=== PATIENT | female | born 1945 | race Caucasian/White ===

== ENCOUNTER 2016-10-02 16:16 | Inpatient (IN) ==
--- NOTE | 2016-10-02 17:24 | CT Report ---
CT brain Indication: Altered level of consciousness Comparison: None available Technique: Axial CT imaging of the brain is performed without contrast with 3 mm increments. Findings: No evidence of hemorrhage, mass mass effect midline shift or acute infarct seen. The brain parenchyma attenuation and differentiation appears within normal limits. The ventricles and cisterns are normal in caliber. No cranial or skull base abnormality is identified. Impression: No evidence of abnormality demonstrated. This CT exam was performed using one or more the following dose reduction techniques: Automated exposure control, adjustment of the MA and/or KV according to patient size, or use of iterative reconstruction technique. PROCEDURE INTERPRETED AT [facility] DEPARTMENT OF RADIOLOGY Final Report Signed by: Dr. Cole Aceves
--- NOTE | 2016-10-02 17:30 | EKG Report ---
Stationary ECG Study [facility] ER Test Date: 10/02/2016 4:46:43 PM Pat Name: QASIM GRUBBS Department: Room: Gender: F Business Change Manager: : 1945 Requested by: Amari Rogers Order Number: [id number] Reading MD: HERNANDO SANZ Intervals [place] Rate: 87 P: 53 MS: 145 QRS: -36 QRSD: 106 T: 57 QT: 378 QTc: 422 Interpretive Statements SINUS RHYTHM MARKED LEFT AXIS DEVIATION Electronically Signed On 10-03-16 16:51:57 CDT by HERNANDO SANZ [id number]
[2016-10-02] MEDS ORDERED: cloNIDine 0.1 MG TABLET PO STA (17:33)
[2016-10-02 17:36] LABS: Basophils # 0.1 10*3/uL (0.0-0.2); Basophils % 0.6 % (0.0-0.8); Eosinophils # 0.1 10*3/uL (0.0-0.87); Hematocrit 42.8 VOL% (35.7-47.0); Hemoglobin 14.8 GM/DL (12.0-16.0); Immature Granulocytes % 0.5 %; Immature Granulocytes Absolute 0.06 #; Lymphocytes # 2.4 10*3/uL (1.4-4.0); Lymphocytes % 20.5 % (21.3-54.2); Mean Corpuscular HGB Conc 34.6 GM/DL (32-36); Mean Corpuscular Hemoglobin 31 PG (27-34); Mean Corpuscular Volume 90.3 FL (87-102); Mean Platelet Volume 11.2 FL (9.6-12.0); Monocytes # 0.7 10*3/uL (0.11-0.8); Neutrophils # 8.2 10*3/uL (1.4-7.4); Neutrophils % 71.4 % (38.7-73.9); Platelet Count 254 T/CUMM (130-400); Red Blood Count 4.74 MC/CUMM (3.8-5.5); Red Cell Distribution Width 12.9 % (9.3-17.3); White Blood Count 11.5 T/CUMM (4-12)
[2016-10-02] MEDS ORDERED: ONDANSETRON 4 MG/2 ML VIAL IV PRN (17:38)
[2016-10-02 17:46] LABS: Calcium 9.6 MG/DL (8.5-10.1); Osmolality,Calculated 279.5 MOS/KG (273-304); Potassium 4.3 MMOL/L (3.5-5.1)
[2016-10-02 17:50] LABS: Apearance,Urine CLEAR (Clear); Bilirubin,Urine Negative (Negative); Blood, Urine Negative (Negative); Glucose,Urine (UA) Negative (Negative); Ketones,Urine 5 mg/dL (Negative); Mucus,Urine Occasional /LPF (Occasional); Nitrite,Urine Negative (Negative); Protein,Urine Negative; RBC,Urine 1 /HPF (0-4); Squamous Epithelial Cell,Urine Occasional /HPF (0-10); Urine Color Straw (Yellow); Urine Urobilinogen < 2.0 EU/DL (0.2-1.0); WBC,Urine 11 /HPF (0-6)
--- NOTE | 2016-10-02 18:01 | Emergency Department Note ---
I, Gian Weber, am scribing for, and in the presence of, Amari Grimaldo M.D. 17:40. IRe Howard T, M.D., personally performed the services described in this documentation, ascribed by Gian Weber in my presence, and it is both accurate and complete [id number] . Arrival - Arrival Chief Complaint: Neuro Stated Complaint: going blank couldnt remember basic thing cant talk ED Nursing Triage Note: C/O STATES TODAY WAS HAVING EPISODE OF NOT BEING ABLE TO SPEAK., STATES SHE HAD AN EPISODE OF CONFUSION, STATES THAT SHE HAD AN EPISODE OF NOT BEING ABLE TO READ WORDS., STATES THIS STARTED TODAY AT 0830 TODAY .+ HEADACHE, +NAUSEA Mode of Arrival: Wheelchair Limitations: No Limitations Source: Patient Time Seen by Provider: 10/02/16 16:51 - History of Present Illness HPI Narrative: Pt is a 71 y/o white female arriving to ED by EMS with c/o confusion that onset a few hours ago. At time of exam, pt only complains of a headache and states that she took a Tylenol today and had no relief. Pt states that it was twice today that she was not able to read and she did not know what to say and do. She said that around 1100 today, she experienced terrible and slower speech. She states that she was better for about 2 hours and then she had the same episode again. Family states that pt reported that she could only see through a tunnel at that time. Pt reports that both of her episodes were during judaism, so she just sat there and did not alert anyone. Pt states that this has never happened before. She has a PMHx of DM and HTN. At time of exam pt's blood pressure is 191/85 and she currently takes 4 blood pressure medications. Onset (ago): hour(s) Consistency: constant Severity: mild Severity scale (1-10): 3 Allergies/Adverse Reactions: Allergies Allergy/AdvReac Type Severity Reaction Status Date / Time Penicillins Allergy RASH Verified 10/02/16 16:33 pseudoephedrine Allergy RASH Verified 10/02/16 16:33 [From [facility]] Home Medications: Home Medications Medication Instructions Recorded Confirmed Type Doxazosin Mesylate 2 mg PO BID 10/02/16 10/02/16 History Glimepiride 4 mg PO BID W/MEALS 10/02/16 10/02/16 History Lactobacillus Combo No.6 1 each PO DAILY 10/02/16 10/02/16 History [Probiotic Complex] Metformin HCl 1,000 mg PO BEDTIME 10/02/16 10/02/16 History Metformin HCl 500 mg PO QAM 10/02/16 10/02/16 History Verapamil HCl [Verapamil ER Tab] 240 mg PO QAM 10/02/16 10/02/16 History Review of System - Review of System 12 point system: reviewed and no additional remarkable complaints except as stated - Review of System Eyes: Absent: discharge, pain Head/Ears/Nose/Throat: Absent: earache, epistaxis Respiratory: Absent: cough, respiratory distress, wheezing Cardiovascular: Absent: chest pain, palpitations Gastrointestinal: Absent: abdominal pain, nausea, vomiting, diarrhea Genitourinary female: Absent: abnormal menses, dysuria Musculoskeletal: Absent: arm pain, back pain, leg pain, neck pain Skin: Absent: rash, lesions Neurological: Present: headache, confusion Psychiatric: Absent: anxiety, depression Medical,Surgical,& Family Hx - Medical History Cardio: History of: Hypertension Endocrine: History of: Diabetes Mellitus (NIDDM), Dyslipidemia - Social History Smoking Status: Never smoker Frequency of Alcohol Use: None Type of Drug Use: None Exam Vital Signs: Vital Signs Temperature 98.8 F 10/02/16 16:26 Pulse Rate 91 H 10/02/16 16:26 Respiratory Rate 16 10/02/16 16:26 Blood Pressure 214/110 10/02/16 16:26 O2 Sat by Pulse Oximetry 95 10/02/16 16:26 - General General appearance: alert, in no apparent distress - Head Head exam: Present: atraumatic, normocephalic, normal inspection - Eye Eye exam: Present: normal appearance, PERRL, EOMI - ENT ENT exam: Present: normal exam, normal oropharynx, mucous membranes moist, TM's normal bilaterally, normal external ear exam - Neck Neck exam: Present: normal inspection, full ROM, trachea midline. Absent: tenderness - Chest Chest inspection: Present: normal inspection, symmetric chest wall rise. Absent : tenderness - Respiratory Respiratory exam: Present: normal lung sounds bilaterally - Cardiovascular Cardiovascular exam: Present: regular rate, normal rhythm, normal heart sounds - Abdominal Exam Abdominal exam: Present: soft, normal bowel sounds. Absent: distention, tenderness, guarding, rebound - Extremities Exam Extremities exam: Present: normal inspection, full ROM, normal capillary refill. Absent: tenderness, pedal edema - Back Exam Back exam: Present: normal inspection, full ROM. Absent: tenderness - Neurological Exam Neurological exam: Present: alert, oriented X3, CN II-XII intact, normal gait, reflexes normal - Psychiatric Psychiatric exam: Present: normal affect, normal mood - Skin Skin exam: Present: warm, dry, intact, normal color Course Course Narrative: Medical decision making: Discussed with Dr. Mabry who agreed to admit the patient and actually came to see the patient in the ER. We will watch overnight and consult neurology. Results - Labs CBC & BMP: 10/02/16 16:53 10/02/16 16:53 Lab Results: I have reviewed the patients labs Labs: Laboratory Tests 10/02/16 16:53 Lymph % (Auto) 20.5 L Neut # (Auto) 8.2 H - EKG EKG results: interpreted by STAR, sinus rhythm (HR87 L axis deviation), normal ST/T, no acute changes - Diagnostic Findings Procedure: CT: report reviewed by me (Head: No evidence of abnormality demonstrated.) Disposition Clinical Impression: Transient cerebral ischemia Case discussed with: patient, patient's family Disposition: Still a Patient Condition: Stable Time of Disposition: 18:01
[2016-10-02] MEDS ORDERED: ACETAMINOPHEN 500 MG TABLET ONE (18:14)
[2016-10-02] MEDS ORDERED: ACETAMINOPHEN 500 MG TABLET PO STA ×2 (18:46→19:33)
[2016-10-02] MEDS ORDERED: cloNIDine 0.1 MG TABLET ONE (18:49)
--- NOTE | 2016-10-02 19:57 | Ultrasound Report ---
Carotid artery ultrasound Indication: Transient ischemic attack Comparison: None available Color Doppler flow and spectral analysis was performed. Findings: Small amount of atherosclerotic plaque is present in both proximal internal carotid arteries. The peak systolic velocity in the right is 99 cm/s . Ratio of flow is 1.2. The peak systolic velocity in the left is 116 cm/s . Ratio of flow is 1.4 Bilateral antegrade vertebral flow is seen. Impression: No evidence of hemodynamically significant stenosis is seen, 0-49% estimated stenosis. Consensus conference on the carotid ultrasound criteria used. Ultrasound images were captured and stored. PROCEDURE INTERPRETED AT [facility] DEPARTMENT OF RADIOLOGY Final Report Signed by: Dr. Cole Aceves
[2016-10-02] MEDS ORDERED: DOXAZOSIN 2 MG TABLET PO SCH (21:00)
[2016-10-02] MEDS ORDERED: GLUCAGON 1 MG VIAL IM PRN (21:24)
[2016-10-02] MEDS ORDERED: DEXTROSE 50% 25 GM/50 ML VIAL IV PRN (21:24)
--- NOTE | 2016-10-02 21:27 | Internal Med History&Physical ---
Assessment and Plan (1) Diabetes Status: Chronic Current Visit: Yes Qualifiers: Diabetes mellitus type: type 2 Diabetes mellitus complication status: with neurologic complications Diabetes mellitus complication detail: with polyneuropathy Diabetes mellitus correction insulin use: without correction use Qualified Code(s): E11.42 - Type 2 diabetes mellitus with diabetic polyneuropathy (2) Dyslipidemia Status: Chronic Current Visit: Yes (3) Hypertension Status: Chronic Current Visit: Yes Qualifiers: Hypertension type: essential hypertension Qualified Code(s): I10 - Essential (primary) hypertension (4) Transient cerebral ischemia Status: Acute Current Visit: Yes History of Present Illness Chief complaint: acute aphasia and confusion History of present illness: Ms. Escamilla is a 71 year old female with history of DM, peripheral neuropathy to both lower extremities, HTN, dyslipidemia, OA, recurrent UTI, acid reflux, suspicion of obstructive sleep apnea, who presented to ER with acute confusion, aphasia earlier today at [facility]. She was found to have significantly elevated blood pressure in the ER. She was admitted for stroke rule out. Home Medications Medication Instructions Recorded Confirmed Type Doxazosin Mesylate 2 mg PO BID 10/02/16 10/02/16 History Glimepiride 4 mg PO BID W/MEALS 10/02/16 10/02/16 History Lactobacillus Combo No.6 1 each PO DAILY 10/02/16 10/02/16 History [Probiotic Complex] Metformin HCl 1,000 mg PO BEDTIME 10/02/16 10/02/16 History Metformin HCl 500 mg PO QAM 10/02/16 10/02/16 History Verapamil HCl [Verapamil ER Tab] 240 mg PO QAM 10/02/16 10/02/16 History Allergies Allergy/AdvReac Type Severity Reaction Status Date / Time Penicillins Allergy RASH Verified 10/02/16 16:33 pseudoephedrine Allergy RASH Verified 10/02/16 16:33 [From Sudafed] Medical,Surgical,& Family Hx - Medical History Cardio: History of: Hypertension Neurology: History of: Peripheral Neuropathy (both legs) Endocrine: History of: Diabetes Mellitus (NIDDM), Dyslipidemia Respiratory: History of: Respiratory Problems (exertional shortness of breath) Genitourinary: History of: Recurring Urinary Tract Infections Gastrointestinal: History of: GERD Musculoskeletal: History of: Back/Neck Problems, Musculoskeletal Problems ( osteoarthritis) - Family History Family History: Reports;: Family Hypertension - Social History Smoking Status: Never smoker Frequency of Alcohol Use: None Type of Drug Use: None Marital Status: Single Lives With:: Alone Functional capacity: independent ambulation - Constitutional Constitutional: Present: fatigue, lethargy, malaise - Respiratory Respiratory: Present: dyspnea on exertion - Gastrointestinal Gastrointestinal: Present: constipation (history of), dyspepsia (history of) - Genitourinary Genitourinary: Present: urinary frequency - Musculoskeletal Musculoskeletal: Present: arthralgias - Neurological Neurological: Present: confusion Exam - Constitutional Vitals: Period Temp Pulse Resp BP Sys/Worthy Pulse Ox Last 24 Hr 82-91 16-19 155-185/67-82 97 General appearance: no acute distress - Head Head exam: Present: normocephalic - Eye Eye exam: Present: EOMI - Respiratory Respiratory exam: Present: clear to auscultation bilaterally. Absent: rhonchi, wheezes - Cardiovascular Cardiovascular exam: Present: regular rate and rhythm - GI/Abdominal GI/Abdominal exam: Present: soft. Absent: tenderness - Extremities Exam Extremities exam: Absent: edema - Neurological Exam Neurological exam: Present: alert, oriented X3 - Psychiatric Psychiatric exam: Present: normal affect, normal mood - Skin Skin exam: Present: warm, dry Results - Labs CBC & BMP: 10/02/16 16:53 10/02/16 16:53 - EKG EKG shows: sinus rhythm - Diagnostic Findings Procedure: Ultrasound: report reviewed by me Quality Measures - Stroke Onset of Symptoms Date: 10/02/16 Onset of Symptoms Time: 08:30 Symptom Onset Unknown: No
[2016-10-02] MEDS ORDERED: DOXAZOSIN 1 MG TABLET PO SCH (21:30)
[2016-10-02] MEDS: ACETAMINOPHEN 325 MG TABLET PO PRN (22:06)
[2016-10-02] MEDS: GLIMEPIRIDE 4 MG TABLET PO SCH (22:11)
[2016-10-02] MEDS: DOCUSATE SODIUM 100 MG CAPSULE PO SCH (22:11)
[2016-10-02] MEDS: metFORMIN 500 MG TABLET PO SCH (22:11)
[2016-10-02] MEDS: CIPROFLOXACIN INJ 200 MG in PREMIX 1 EACH IV SCH (23:38)
[2016-10-03] MEDS: KETOROLAC 15 MG/1 ML VIAL IV PRN ×3 (01:11→21:17)
[2016-10-03 05:14] LABS: Basophils # 0.1 10*3/uL (0.0-0.2); Basophils % 0.6 % (0.0-0.8); Eosinophils # 0.1 10*3/uL (0.0-0.87); Hematocrit 39.1 VOL% (35.7-47.0); Hemoglobin 13.1 GM/DL (12.0-16.0); Immature Granulocytes % 0.6 %; Immature Granulocytes Absolute 0.07 #; Lymphocytes # 2.8 10*3/uL (1.4-4.0); Lymphocytes % 23.9 % (21.3-54.2); Mean Corpuscular HGB Conc 33.5 GM/DL (32-36); Mean Corpuscular Hemoglobin 31 PG (27-34); Mean Corpuscular Volume 91.4 FL (87-102); Mean Platelet Volume 11.4 FL (9.6-12.0); Monocytes # 0.8 10*3/uL (0.11-0.8); Monocytes % 7.1 % (1.7-12.7); Neutrophils # 7.7 10*3/uL (1.4-7.4); Neutrophils % 66.8 % (38.7-73.9); Platelet Count 249 T/CUMM (130-400); Red Blood Count 4.28 MC/CUMM (3.8-5.5); White Blood Count 11.6 T/CUMM (4-12)
[2016-10-03 05:50] LABS: Calcium 8.9 MG/DL (8.5-10.1); Osmolality,Calculated 282.4 MOS/KG (273-304); Potassium 4.2 MMOL/L (3.5-5.1)
[2016-10-03 05:57] LABS: VLDL CHOLESTEROL 188.8 MG/DL
[2016-10-03] MEDS: INSULIN REGULAR 100 UNIT/ML SUBCUT SCH ×4 (07:35→21:19)
[2016-10-03] MEDS ORDERED: VERAPAMIL SR 240 MG TABLET PO SCH (09:00)
[2016-10-03] MEDS: OMEGA 3 ACID ETHYL ESTERS 1 GM CAPSULE PO SCH ×2 (09:02→21:15)
[2016-10-03] MEDS: GLIMEPIRIDE 4 MG TABLET PO SCH ×2 (09:02→18:25)
[2016-10-03] MEDS: DOXAZOSIN 4 MG TABLET PO SCH ×2 (09:03→21:14)
[2016-10-03] MEDS: metFORMIN 500 MG TABLET PO SCH ×3 (09:03→21:23)
[2016-10-03] MEDS: LACTOBACILLUS ACIDOPHILUS/BULGARICUS CAPLET PO SCH (09:03)
[2016-10-03] MEDS: PANTOPRAZOLE 40 MG TABLET PO SCH (09:03)
[2016-10-03] MEDS: GEMFIBROZIL 600 MG TABLET PO SCH (09:04)
[2016-10-03] MEDS: DOCUSATE SODIUM 100 MG CAPSULE PO SCH ×2 (09:04→21:18)
--- NOTE | 2016-10-03 09:06 | Neurology Consult Note ---
History of Present Illness History of present illness: Ms. Escamilla is a 71 year old right-handed white lady with past medical history significant for DM, peripheral neuropathy to both lower extremities, HTN, dyslipidemia, OA, recurrent UTI, acid reflux, suspicion of obstructive sleep apnea, who presented to ER with difficulty with his speech and comprehension which happened yesterday while she was at [employer]. Patient reported that she could read but could not process or understood what she was looking at. Then later on she realized that she could not get the words out. She knew what she wanted to say but just could not get the words out. She denies having any weakness or numbness. Symptoms lasted for 30-45 minute then it resolved but then came back again a few hours later and lasted for another hour. A CT of the head reveals no acute abnormalities. Carotid ultrasound is unremarkable. Patient is feeling better. She was never been on any antiplatelet agents before. Home Medications Medication Instructions Recorded Confirmed Type Doxazosin Mesylate 2 mg PO BID 10/02/16 10/02/16 History Glimepiride 4 mg PO BID W/MEALS 10/02/16 10/02/16 History Lactobacillus Combo No.6 1 each PO DAILY 10/02/16 10/02/16 History [Probiotic Complex] Metformin HCl 1,000 mg PO BEDTIME 10/02/16 10/02/16 History Metformin HCl 500 mg PO QAM 10/02/16 10/02/16 History Verapamil HCl [Verapamil ER Tab] 240 mg PO QAM 10/02/16 10/02/16 History Allergies Allergy/AdvReac Type Severity Reaction Status Date / Time Penicillins Allergy RASH Verified 10/02/16 16:33 pseudoephedrine Allergy RASH Verified 10/02/16 16:33 [From Sudafed] Rekjrby-Bln-Mlr Reductase Allergy Verified 10/03/16 01:01 Inhibitor 12 point system: reviewed and no additional remarkable complaints except as stated Medical,Surgical,& Family Hx - Medical History Cardio: History of: Hypertension Neurology: History of: Peripheral Neuropathy (both legs) Endocrine: History of: Diabetes Mellitus (NIDDM), Dyslipidemia Respiratory: History of: Respiratory Problems (exertional shortness of breath) Genitourinary: History of: Recurring Urinary Tract Infections Gastrointestinal: History of: GERD Musculoskeletal: History of: Back/Neck Problems, Musculoskeletal Problems ( osteoarthritis) - Family History Family History: Reports;: Family Hypertension - Social History Smoking Status: Never smoker Frequency of Alcohol Use: None Type of Drug Use: None Exam - Constitutional Vitals: Period Temp Pulse Resp BP Sys/Worthy Pulse Ox Last 24 Hr 98.1 F-98.5 F 79-91 16-20 139-185/62-82 91-97 Exam: GENERAL: Patient is in no acute distress. NECK: Neck is supple. There is no JVD. No carotid bruits present. No thyroid masses. CVS: First and second heart sounds are normal. There is no S3 present. Regular rate and rhythm. RESPIRATORY: Lungs are clear to auscultation without any rales or rhonchi. ABDOMEN: Soft and non-tender. Bowel sounds are present. There is no hepatosplenomegaly. EXT: There is no palpable edema. Peripheral pulses are present. Skin: No rashes Central Nervous system: General: Alert, awake and Oriented x 3 Speech: Fluent Comprehension: Intact and normal Facial expressions: Normal Cranial Nerves: CN1/Olfactory: Normal CN II/ Optic: Normal, Visual Quintana unreliable CN III, and : FAYE & EOMI CN V: Normal & intact CN VII: face is symmetric CNVIII: Normal CN XI/X/XI/XII: Intact and Normal Motor: Bulk and Tone is normal. Strength in the right 5/5 Strength in the left 5/5 Sensory: Decreased for all the modalities of PP, LT and temp sense in the glove and stocking distribution Reflexes: 1+ and symmetrical Cerebellar function: Normal finger to nose and heel to patiño testing. Toes: Equivocal Gait: Slightly broad-based Results - Labs CBC & BMP: 10/03/16 03:45 10/03/16 03:45 Assessment and Plan (1) Transient cerebral ischemia Status: Acute Assessment and plan: Aspirin 81 mg p.o. daily MRI and MRA Echocardiogram Lipid profile Thank you for the consult Current Visit: Yes
[2016-10-03] MEDS: ASPIRIN EC 81 MG TABLET PO SCH (13:04)
[2016-10-03] MEDS: CIPROFLOXACIN INJ 200 MG in PREMIX 1 EACH IV SCH ×2 (13:05→23:39)
--- NOTE | 2016-10-03 13:29 | Magnetic Resonance Report ---
Exam: MR head/brain w and wo con Date: 10/03/2016 4:00 AM Comparison: CT brain 10/02/2016 Indication: Headache, aphasia, acute confusion Technique:[Multiple acquisitions were obtained including sagittal T1, coronal T1 scans following injection of 20 cc of Dotarem, and axial ADC, diffusion, FLAIR, T2, GRE, and T1 scans before and after the injection contrast. Scans were obtained on an open 1.2 Laura magnet.] Findings: The ventricles are midline and normal in size with no midline displacement. The pituitary has a normal appearance and the cerebellar tonsils are normal in their location. 3 small areas of restricted diffusion are noted in the left posterior parietal location. No evidence of hemorrhage, mass, extracerebral collection, or abnormal enhancement. Diffuse atrophy and FLAIR/T2 hyperintensities. Enlarged perivascular spaces which represent a normal variant. Minimal mucosal thickening in paranasal sinuses. No acute findings in the orbits, [place], or venous sinuses. Fluid in the mastoid air cells bilaterally. 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 Additional atrophy and minimal microvascular disease. T2 hyperintensities can also be associated with demyelinating disease, vasculitis, viral illness, etc. Minimal sinusitis with nonspecific fluid in the mastoid air cells. PROCEDURE INTERPRETED AT [facility] DEPARTMENT OF RADIOLOGY Final Report Signed by: Dr. Bindu Arriaga
--- NOTE | 2016-10-03 13:33 | Magnetic Resonance Report ---
Exam: MR angio head wo debra (JESUS) Date: 10/03/2016 9:09 AM Comparison: None Indication: TIA, aphasia, headache Technique:[Utilizing 3-D [id number] imaging MRA brain obtained without contrast. 3-D volume rendered scans were obtained. Degree of stenosis based on NASCET criteria. Scans were obtained on an open 1.2 Laura magnet.] Findings: Tortuosity of the arteries with no definite aneurysm. Hypoplastic left P1 segment with filling of the larger distal left PRINCIPAL SCIENTIST from ICA. Diminished filling of the distal PRINCIPAL SCIENTIST bilaterally. Impression: Tortuosity of the arteries with no definite aneurysm. Hypoplastic left P1 segment with filling from ICA. Diminished filling of the distal PRINCIPAL SCIENTIST bilaterally which can be seen with possible hemodynamically significant stenosis. PROCEDURE INTERPRETED AT [facility] DEPARTMENT OF RADIOLOGY Final Report Signed by: Dr. Bindu Arriaga
--- NOTE | 2016-10-03 13:37 | Magnetic Resonance Report ---
Exam: MR angio neck wo/w con Date: 10/03/2016 9:09 AM Comparison: None Indication: TIA, aphasia, headache Technique:[Utilizing 3-D vklk-vw-jntblu imaging MRA carotids obtained before and after the injection of 20 cc of Dotarem. Degree of stenosis based on NASCET criteria. Scans were obtained on an open 1.2 Laura magnet.] Findings: Tortuosity of the artery. In the upper carotid bulb location, the right ICA measures 4.26 mm. The left ICA measures 4.78 mm. No hemodynamically significant stenosis demonstrated. The right vertebral artery is smaller size than the left but patent to the level of the basilar artery. Impression: Tortuosity arteries with no hemodynamically significant stenosis. The right vertebral artery is smaller in size than the left. PROCEDURE INTERPRETED AT [facility] DEPARTMENT OF RADIOLOGY Final Report Signed by: Dr. Bindu Arriaga
--- NOTE | 2016-10-03 16:08 | Sleep Medicine Consult ---
Assessment and Plan (1) Unspecified sleep apnea Status: Acute Assessment and plan: Her symptoms are certainly concerning for sleep apnea and with her comorbidities and sleepiness, sleep evaluation is indicated. We will start with HST evaluation and follow-up on those results. Thank you for this consult and the opportunity to participate in her care Current Visit: Yes (2) Diabetes Status: Chronic Assessment and plan: The prevalence rate for obstructive sleep apnea in patients with type 2 diabetes can be as high as 86%. Those patients with moderate to severe obstructive sleep apnea are at a greater risk for diabetic nephropathy and neuropathy. Compliance with CPAP therapy for these patients can lead to improvement in glycemic control and improvement in insulin sensitivity. Current Visit: Yes Qualifiers: Diabetes mellitus type: type 2 Diabetes mellitus complication status: with neurologic complications Diabetes mellitus complication detail: with polyneuropathy Diabetes mellitus intermediate insulin use: without technician terminal and repeater use Qualified Code(s): E11.42 - Type 2 diabetes mellitus with diabetic polyneuropathy (3) Hypertension Status: Chronic Assessment and plan: The prevalence rate for obstructive sleep apnea patients with hypertension is 35 %. That rate can be as high as 80% in patients who require 4 or more medications for blood pressure control. Current Visit: Yes Qualifiers: Hypertension type: essential hypertension Qualified Code(s): I10 - Essential (primary) hypertension History of Present Illness Chief complaint: Sleep apnea History of present illness: Ms. Escamilla is a 71 year old female admitted with expressive aphasia and confusion and elevated blood pressure. During the course of her evaluation there was concern expressed for sleep apnea. She does have a history of snoring and problems with daytime fatigue and sleepiness. She usually retires about 10 PM and will awaken at 530. She has difficulty with multiple awakenings for unknown reasons unless she takes the Tranxene. She does that intermittently. She does have a history of hypertension and diabetes. Home Medications Medication Instructions Recorded Confirmed Type Doxazosin Mesylate 2 mg PO BID 10/02/16 10/02/16 History Glimepiride 4 mg PO BID W/MEALS 10/02/16 10/02/16 History Lactobacillus Combo No.6 1 each PO DAILY 10/02/16 10/02/16 History [Probiotic Complex] Metformin HCl 1,000 mg PO BEDTIME 10/02/16 10/02/16 History Metformin HCl 500 mg PO QAM 10/02/16 10/02/16 History Verapamil HCl [Verapamil ER Tab] 240 mg PO QAM 10/02/16 10/02/16 History Gabapentin Cap/Tab [Neurontin 300 mg PO BEDTIME 10/03/16 10/03/16 History Cap/Tab] Metoprolol Tartrate Tab [Lopressor 50 mg PO BID 10/03/16 10/03/16 History Tab] Allergies Allergy/AdvReac Type Severity Reaction Status Date / Time Penicillins Allergy RASH Verified 10/02/16 16:33 pseudoephedrine Allergy RASH Verified 10/02/16 16:33 [From Sudafed] [id number] Reductase Allergy Verified 10/03/16 01:01 Inhibitor Review of systems: Does have symptoms of discomfort in her feet but no kicking or jerking of her legs that she is aware of. She does not have any significant issues with nocturia. Exam (Pulmonay) H&P - Constitutional Vitals: Period Temp Pulse Resp BP Sys/Worthy Pulse Ox Last 24 Hr 96.2 F 71 20-20 164/71 94 Exam: She is alert and responsive in no acute distress. Pupils equal round reactive to light and accommodation. Extraocular movements intact. Oropharynx with a class IV Mallampati exam. Neck is supple without adenopathy or thyromegaly. No supraclavicular adenopathy is noted. Chest with symmetrical breath sounds without focal wheeze, rhonchi, or rales. Cardiac exam reveals a regular rhythm without murmur or gallop. Abdomen obese nontender without palpable hepatosplenomegaly or mass. Extremities are without clubbing, cyanosis, or edema. Neurologically, she is grossly intact. She moves all extremities with good strength and ambulates with a normal gait. Medical,Surgical,& Family Hx - Medical History Cardio: History of: Hypertension Neurology: History of: Peripheral Neuropathy (both legs) Endocrine: History of: Diabetes Mellitus (NIDDM), Dyslipidemia Respiratory: History of: Respiratory Problems (exertional shortness of breath) Genitourinary: History of: Recurring Urinary Tract Infections Gastrointestinal: History of: GERD Musculoskeletal: History of: Back/Neck Problems, Musculoskeletal Problems ( osteoarthritis) - Family History Family History: Reports;: Family Hypertension - Social History Smoking Status: Never smoker Frequency of Alcohol Use: None Type of Drug Use: None Results - Labs CBC & BMP: 10/03/16 03:45 10/03/16 03:45 Lab Results: I have reviewed the past 24 hour labs Quality Measures - Stroke Onset of Symptoms Date: 10/02/16 Onset of Symptoms Time: 08:30 Symptom Onset Unknown: No
--- NOTE | 2016-10-03 17:28 | Internal Med Progress Note ---
Assessment and Plan (1) Diabetes Status: Chronic Current Visit: Yes Qualifiers: Diabetes mellitus type: type 2 Diabetes mellitus complication status: with neurologic complications Diabetes mellitus complication detail: with polyneuropathy Diabetes mellitus mcfp insulin use: without oil heaterman use Qualified Code(s): E11.42 - Type 2 diabetes mellitus with diabetic polyneuropathy (2) Dyslipidemia Status: Chronic Current Visit: Yes (3) Hypertension Status: Chronic Current Visit: Yes Qualifiers: Hypertension type: essential hypertension Qualified Code(s): I10 - Essential (primary) hypertension (4) Transient cerebral ischemia Status: Acute Current Visit: Yes Internal Medicine - PN: Subj Interval history: Ms. Escamilla is a 71 year old female with history of DM, peripheral neuropathy to both lower extremities, HTN, dyslipidemia, OA, recurrent UTI, acid reflux, suspicion of obstructive sleep apnea, who [facility] She was found to have significantly elevated blood pressure in the ER. She was admitted for stroke rule out. MRI shows multiple lacunar infarcts left side. Discussed with her the need to make lifestyle modifications to lose weight. Also, controlling blood pressure better. She is intolerant to statins and to Lopid. Will try fenofibrate to help with elevated triglycerides. Lovaza was added. Exam (Progress Note) - Constitutional Vitals: Period Temp Pulse Resp BP Sys/Worthy Pulse Ox Last 24 Hr 96.2 F-98.4 F 68-71 18-20 164-168/71-74 92-94 General appearance: no acute distress - Respiratory Respiratory exam: Present: clear to auscultation bilaterally - Cardiovascular Cardiovascular exam: Present: regular rate and rhythm - GI/Abdominal GI/Abdominal exam: Present: soft. Absent: tenderness - Extremities Exam Extremities exam: Absent: edema - Neurological Exam Neurological exam: Present: alert, oriented X3, CN II-XII intact - Psychiatric Psychiatric exam: Present: normal affect, normal mood - Skin Skin exam: Present: warm Results - Labs CBC & BMP: 10/03/16 03:45 10/03/16 03:45 Quality Measures - Stroke Onset of Symptoms Date: 10/02/16 Onset of Symptoms Time: 08:30 Symptom Onset Unknown: No
[2016-10-03] MEDS ORDERED: ALBUTEROL/IPRATROPIUM 3 ML NEB RESP TX PRN (17:31)
[2016-10-03] MEDS: ALBUTEROL/IPRATROPIUM 3 ML NEB RESP TX SCH (20:04)
[2016-10-03] MEDS ORDERED: GABAPENTIN 300 MG CAPSULE PO SCH (21:00)
[2016-10-03] MEDS ORDERED: METOPROLOL TARTRATE 50 MG TABLET PO SCH (21:00)
[2016-10-03] MEDS: METOPROLOL TARTRATE 25 MG TABLET PO SCH (21:15)
[2016-10-03] MEDS: VERAPAMIL SR 240 MG TABLET PO SCH (21:15)
[2016-10-04] MEDS: ALBUTEROL/IPRATROPIUM 3 ML NEB RESP TX SCH ×4 (01:00→21:27)
[2016-10-04 04:31] LABS: Albumin 3.2 G/DL (3.4-5.0); Bilirubin,Total 0.6 MG/DL (0.2-1.0); Calcium 9.4 MG/DL (8.5-10.1); Osmolality,Calculated 287.1 MOS/KG (273-304); Potassium 4.1 MMOL/L (3.5-5.1); Total Protein 5.8 G/DL (6.4-8.3)
[2016-10-04] MEDS: INSULIN REGULAR 100 UNIT/ML SUBCUT SCH ×4 (08:22→21:39)
[2016-10-04] MEDS: DOXAZOSIN 4 MG TABLET PO SCH ×2 (08:24→20:57)
[2016-10-04] MEDS: METOPROLOL TARTRATE 25 MG TABLET PO SCH ×2 (08:24→21:00)
[2016-10-04] MEDS: metFORMIN 500 MG TABLET PO SCH ×3 (08:24→20:59)
[2016-10-04] MEDS: LACTOBACILLUS ACIDOPHILUS/BULGARICUS CAPLET PO SCH (08:24)
[2016-10-04] MEDS: ASPIRIN EC 81 MG TABLET PO SCH (08:24)
[2016-10-04] MEDS: GLIMEPIRIDE 4 MG TABLET PO SCH ×2 (08:24→17:20)
[2016-10-04] MEDS: OMEGA 3 ACID ETHYL ESTERS 1 GM CAPSULE PO SCH ×2 (08:24→20:54)
[2016-10-04] MEDS: PANTOPRAZOLE 40 MG TABLET PO SCH (08:24)
[2016-10-04] MEDS: GEMFIBROZIL 600 MG TABLET PO SCH (09:27)
[2016-10-04] MEDS: DOCUSATE SODIUM 100 MG CAPSULE PO SCH ×2 (10:26→20:55)
[2016-10-04] MEDS: FENOFIBRATE 160 MG TABLET PO SCH (10:33)
[2016-10-04] MEDS: CIPROFLOXACIN INJ 200 MG in PREMIX 1 EACH IV SCH ×2 (10:34→23:30)
--- NOTE | 2016-10-04 11:43 | Sleep Medicine Progress Note ---
Assessment and Plan (1) Diabetes Status: Chronic Current Visit: Yes Qualifiers: Diabetes mellitus type: type 2 Diabetes mellitus complication status: with neurologic complications Diabetes mellitus complication detail: with polyneuropathy Diabetes mellitus custodial insulin use: without custodial use Qualified Code(s): E11.42 - Type 2 diabetes mellitus with diabetic polyneuropathy (2) Hypertension Status: Chronic Current Visit: Yes Qualifiers: Hypertension type: essential hypertension Qualified Code(s): I10 - Essential (primary) hypertension (3) Obstructive sleep apnea Status: Acute Assessment and plan: This patient does have mild obstructive sleep apnea with O2 desaturation. We will initiate auto titration CPAP tonight and see how she does. Follow-up will be in the sleep clinic with formal CPAP titration. Current Visit: Yes Sleep Medicine Subjective Interval history: . Patient did undergo HST last night and did have mild obstructive sleep apnea with an AHI of approximately 12. She had O2 desaturations into the 80s. I reviewed these findings with her and we will go ahead and set her up for outpatient CPAP titration for formal treatment and titration effort. We will go ahead and initiate auto titration CPAP tonight while in the hospital to see how she does. Exam (Progress Note) - Constitutional Vitals: Period Temp Pulse Resp BP Sys/Worthy Pulse Ox Last 24 Hr 96.2 F-98.6 F 57-84 18-20 137-178/59-76 92-99 Exam: She is alert and responsive in no acute distress. Pupils equal round reactive to light and accommodation. Extraocular movements intact. Oropharynx with a class III Mallampati exam. Neck supple without adenopathy. No supraclavicular adenopathy. Chest with symmetrical breath sounds without focal wheeze or rhonchi. Cardiac exam reveals a regular rhythm without murmur or gallop. Abdomen soft nontender extremities without increased edema. Neurologically, grossly intact. She answered all questions appropriately and moves all extremities with good strength. Results - Labs CBC & BMP: 10/03/16 03:45 10/04/16 02:51 Lab Results: I have reviewed the past 24 hour labs
--- NOTE | 2016-10-04 14:57 | Neurology Progress Note ---
Neurology - PN : Subjective Interval history: Ms. Escamilla seems to be doing okay. No new problems reported. MRI of the brain revealed acute left posterior parietal lobe subcortical infarcts. She has abnormal triglycerides and medications being adjusted by Dr. Alma Mabry. Exam (Progress Note) - Constitutional Vitals: Period Temp Pulse Resp BP Sys/Worthy Pulse Ox Last 24 Hr 96.3 F-98.6 F 57-84 18-22 137-178/59-76 92-99 Exam: GENERAL: Patient is in no acute distress. NECK: Neck is supple. There is no JVD. No carotid bruits present. No thyroid masses. CVS: First and second heart sounds are normal. There is no S3 present. Regular rate and rhythm. RESPIRATORY: Lungs are clear to auscultation without any rales or rhonchi. ABDOMEN: Soft and non-tender. Bowel sounds are present. There is no hepatosplenomegaly. EXT: There is no palpable edema. Peripheral pulses are present. Skin: No rashes Central Nervous system: General: Alert, awake and Oriented x 3 Speech: Fluent Comprehension: Intact and normal Facial expressions: Normal Cranial Nerves: CN1/Olfactory: Normal CN II/ Optic: Normal, Visual Quintana unreliable CN III, and : FAYE & EOMI CN V: Normal & intact CN VII: face is symmetric CNVIII: Normal CN XI/X/XI/XII: Intact and Normal Motor: Bulk and Tone is normal. Strength in the right 5/5 Strength in the left 5/5 Sensory: Decreased for all the modalities of PP, LT and temp sense in the glove and stocking distribution Reflexes: 1+ and symmetrical Cerebellar function: Normal finger to nose and heel to patiño testing. Toes: Equivocal Gait: Slightly broad-based Results - Labs CBC & BMP: 10/03/16 03:45 10/04/16 02:51 Assessment and Plan (1) Transient cerebral ischemia Status: Acute Assessment and plan: Continue aspirin 81 mg p.o. daily Okay to go home from neuro standpoint Follow-up in 4 week Current Visit: Yes Quality Measures - Stroke Onset of Symptoms Date: 10/02/16 Onset of Symptoms Time: 08:30 Symptom Onset Unknown: No Specialty Discharge - Follow Up or Referrals Follow up with: Stephen Pelayo MD [Physician] - 1 Month
[2016-10-04] MEDS: ACETAMINOPHEN 325 MG TABLET PO PRN (17:24)
--- NOTE | 2016-10-04 17:47 | ECHO Report ---
Alyson Escamilla Exam Date: 10/03/2016 10:10 Referring Physician: Technologist: Suzie Deras Age: 71 Ht (in): 62 Wt (lb): 178 Gender: F Exam Location: [facility] Echo Indications: CVA, Diabetes, dyslipidemia, HTN BP: 142 / 64 HR: 65 Rhythm: Sinus Technical Quality: Fair IMPRESSIONS Normal left ventricular size, systolic function and wall thickness, with no regional wall motion abnormalities. EF 60 %. Grade I/IV diastolic dysfunction (abnormal relaxation filling pattern), normal to mildly elevated filling pressures. Normal right ventricular size. The right atrium is mildly enlarged. The left atrium is mildly enlarged. Mildly thickened mitral valve. Trace mitral valve regurgitation. Aortic valve sclerosis. No aortic valve regurgitation. Mild tricuspid valve regurgitation. ROF90-85 mmHg. Morphologically normal pulmonic valve. Trivial pericardial effusion. Normal size aortic root and proximal ascending aorta No LV or LA clot seen.. MEASUREMENTS (Male / Female) Normal Values 2D ECHO LV Diastolic Diameter PLAX 3.8 cm 4.2 - 5.9 / 3.9 - 5.3 cm LV Systolic Diameter PLAX 3.0 cm LV Fractional Shortening PLAX 21.2 % IVS Diastolic Thickness 1.7 cm 0.6 - 1.0 / 0.6 - 0.9 cm LVPW Diastolic Thickness 1.4 cm 0.6 - 1.0 / 0.6 - 0.9 cm RV Internal Dim ED PLAX 2.5 cm Aortic Root Diameter 2.8 cm LA Systolic Diameter LX 3.4 cm 3.0 - 4.0 / 2.7 - 3.8 cm DOPPLER TR Peak Velocity 111.0 cm/s TR Peak Gradient 4.9 mmHg FINDINGS Left Ventricle Normal left ventricular size, systolic function and wall thickness, with no regional wall motion abnormalities. EF 60 %. Grade I/IV diastolic dysfunction (abnormal relaxation filling pattern), normal to mildly elevated filling pressures. Right Ventricle Normal right ventricular size. Right Atrium The right atrium is mildly enlarged. Left Atrium The left atrium is mildly enlarged. Mitral Valve Mildly thickened mitral valve. Trace mitral valve regurgitation. Aortic Valve aortic valve sclerosis. No aortic valve regurgitation. Tricuspid Valve Morphologically normal tricuspid valve. Mild tricuspid valve regurgitation. XLU03-68 mmHg. Pulmonic Valve Morphologically normal pulmonic valve. Pericardium Trivial pericardial effusion. Aorta Normal size aortic root and proximal ascending aorta. Soren Rebecca (Electronically Signed) Final Date: 04 Oct 2016 17:46
--- NOTE | 2016-10-04 19:26 | Discharge Summary ---
Hospital Course - Hospital Course Hospital Course: Ms. Escamilla is a 71 year old female with history of DM, peripheral neuropathy to both lower extremities, HTN, dyslipidemia, OA, recurrent UTI, acid reflux, suspicion of obstructive sleep apnea, who presented to ER with acute confusion, aphasia earlier today at [facility]. She was found to have significantly elevated blood pressure in the ER. She was admitted for stroke rule out. MRI shows multiple lacunar infarcts left side. Discussed with her the need to make lifestyle modifications to lose weight. Also, controlling blood pressure better. She is intolerant to statins and to Lopid. Will try fenofibrate to help with elevated triglycerides. Lovaza was added. Overall, she is feeling better. Medication adjustments for improved blood pressure control. Discussed again the need for weight loss and dietary changes. Sister in the room who will obtain information about Weight Watchers. She will need to take daily aspirin. She will follow up with Dr. Infante regarding equipment to treat obstructive sleep apnea. She may need another overnight sleep study. Diagnosis - Discharge Diagnosis (1) Diabetes Status: Chronic (2) Dyslipidemia Status: Chronic (3) Hypertension Status: Chronic (4) Transient cerebral ischemia Status: Acute (5) History of lacunar cerebrovascular accident Status: Chronic (6) Obstructive sleep apnea Status: Chronic Specialty Discharge - Follow Up or Referrals Follow up with: Stephen Pelayo MD [Physician] - 1 Month Discharge Plan - Discharge Data Disposition: Disch To Home/Self Care Condition at Discharge: Stable Discharge Diet: diabetic diet, low fat, low cholesterol Activity: increase activity as tolerated - Discharge Medications New Acetaminophen Tab [Tylenol Tab] 650 mg PO Q6H PRN #0 tablet PRN Reason: Fever > 100.4 Or Headache Amitriptyline [Elavil] 25 mg PO BEDTIME #30 tablet Aspirin EC Tab 81 mg PO DAILY tablet Doxazosin [Cardura] 4 mg PO BID #60 tablet Fenofibrate [Tricor] 160 mg PO DAILY #30 tablet Meloxicam [Mobic] 15 mg PO DAILY W/BREAKFAST #30 tablet Docusate Sodium Cap [Colace Cap] 100 mg PO BID capsule [place] 3 Acid Ethyl Esters [Lovaza] 2 gm PO BID #60 capsule Continue Metformin HCl 1,000 mg PO BEDTIME Glimepiride 4 mg PO BID W/MEALS Lactobacillus Combo No.6 [Probiotic Complex] 1 each PO DAILY Verapamil HCl [Verapamil ER Tab] 240 mg PO QAM Metformin HCl 500 mg PO QAM Metoprolol Tartrate Tab [Lopressor Tab] 50 mg PO BID Discontinued Doxazosin Mesylate 2 mg PO BID Gabapentin Cap/Tab [Neurontin Cap/Tab] 300 mg PO BEDTIME - Follow Up or Referral Follow Up: Stephen Pelayo MD [Physician] - 1 Month Alma Mabry DO [Physician] - Yarelis Infante MD [Physician] - - Forms/Instructions Instructions: Ischemic Stroke (DC) Additional Discharge Instructions: Follow up with Dr. Evin Mabry in clinic per appointment set or in 1-2 weeks. Follow up with Dr. Infante per appointment set for treatment plan of obstructive sleep apnea. Follow up with Dr. Pelayo in clinic to discuss history of lacunar strokes and any stroke-like symptoms. Exam - Constitutional Vitals: Period Temp Pulse Resp BP Sys/Worthy Pulse Ox Last 24 Hr 96.2 F-98.6 F 57-84 18-22 137-178/59-76 93-99 General appearance: no acute distress - Respiratory Respiratory exam: Present: clear to auscultation bilaterally - Cardiovascular Cardiovascular exam: Present: regular rate and rhythm - Extremities Exam Extremities exam: Absent: edema - Neurological Exam Neurological exam: Present: alert, oriented X3 - Psychiatric Psychiatric exam: Present: normal affect, normal mood Discharge Results Labs on day of discharge: Labs from last 24 hours 10/04/16 10/04/16 10/04/16 18:43 15:26 13:02 Sodium Potassium Chloride Carbon Dioxide Anion Gap BUN Creatinine GFR Calculation BUN/Creatinine Ratio Glucose POC Glucose 152 H 95 150 H Calculated Osmolality Calcium Total Bilirubin AST ALT Alkaline Phosphatase Total Protein Albumin Globulin Albumin/Globulin Ratio Vitamin B12 10/04/16 10/04/16 10/04/16 07:36 02:51 02:51 Sodium 142 Potassium 4.1 Chloride 108 H Carbon Dioxide 21 Anion Gap 17.1 H BUN 16 Creatinine 0.60 GFR Calculation 96 BUN/Creatinine Ratio 26.00 H Glucose 165 H POC Glucose 200 H Calculated Osmolality 287.1 Calcium 9.4 Total Bilirubin 0.60 AST 11 ALT 19 Alkaline Phosphatase 135 H Total Protein 5.8 L Albumin 3.2 L Globulin 2.6 Albumin/Globulin Ratio 1.2 Vitamin B12 421 DS: Provider Date of admission: 10/03/16 11:36 Primary care physician: . No PCP Attending physician on admission: Alma Mabry DO Discharging clinician: Alma Mabry DO Expected date of discharge: 10/05/16
--- NOTE | 2016-10-04 19:26 | Internal Med Progress Note ---
Assessment and Plan (1) Diabetes Status: Chronic Current Visit: Yes Qualifiers: Diabetes mellitus type: type 2 Diabetes mellitus complication status: with neurologic complications Diabetes mellitus complication detail: with polyneuropathy Diabetes mellitus senior living insulin use: without manager long term care use Qualified Code(s): E11.42 - Type 2 diabetes mellitus with diabetic polyneuropathy (2) Dyslipidemia Status: Chronic Current Visit: Yes (3) Hypertension Status: Chronic Current Visit: Yes Qualifiers: Hypertension type: essential hypertension Qualified Code(s): I10 - Essential (primary) hypertension (4) Transient cerebral ischemia Status: Acute Current Visit: Yes (5) History of lacunar cerebrovascular accident Status: Chronic Current Visit: Yes (6) Obstructive sleep apnea Status: Chronic Current Visit: Yes Internal Medicine - PN: Subj Interval history: Ms. Escamilla is a 71 year old female with history of DM, peripheral neuropathy to both lower extremities, HTN, dyslipidemia, OA, recurrent UTI, acid reflux, suspicion of obstructive sleep apnea, who presented to ER with acute confusion, aphasia earlier today at [facility]. She was found to have significantly elevated blood pressure in the ER. She was admitted for stroke rule out. MRI shows multiple lacunar infarcts left side. Discussed with her the need to make lifestyle modifications to lose weight. Also, controlling blood pressure better. She is intolerant to statins and to Lopid. Will try fenofibrate to help with elevated triglycerides. Lovaza was added. Monday, she is feeling better. Medication adjustments for improved blood pressure control. Discussed again the need for weight loss and dietary changes. Sister in the room who will obtain information about Weight Watchers. She will need to take daily aspirin. She will follow up with Dr. Infante regarding equipment to treat obstructive sleep apnea. She may need another overnight sleep study. Exam (Progress Note) - Constitutional Vitals: Period Temp Pulse Resp BP Sys/Worthy Pulse Ox Last 24 Hr 96.2 F-98.6 F 57-84 18-22 137-178/59-76 93-99 General appearance: no acute distress - Respiratory Respiratory exam: Present: clear to auscultation bilaterally - Cardiovascular Cardiovascular exam: Present: regular rate and rhythm - GI/Abdominal GI/Abdominal exam: Present: soft. Absent: tenderness - Extremities Exam Extremities exam: Absent: edema - Neurological Exam Neurological exam: Present: alert, oriented X3 - Psychiatric Psychiatric exam: Present: normal affect, normal mood - Skin Skin exam: Present: warm, dry Results - Labs CBC & BMP: 10/03/16 03:45 10/04/16 02:51 Quality Measures - Stroke Onset of Symptoms Date: 10/02/16 Onset of Symptoms Time: 08:30 Symptom Onset Unknown: No Specialty Discharge - Follow Up or Referrals Follow up with: Stephen Pelayo MD [Physician] - 1 Month
[2016-10-04] MEDS: VERAPAMIL SR 240 MG TABLET PO SCH (20:55)
[2016-10-04] MEDS ORDERED: AMITRIPTYLINE 25 MG TABLET PO SCH (21:00)
[2016-10-05] MEDS: ALBUTEROL/IPRATROPIUM 3 ML NEB RESP TX SCH ×3 (03:38→14:28)
[2016-10-05] MEDS: DOXAZOSIN 4 MG TABLET PO SCH (09:05)
[2016-10-05] MEDS: LACTOBACILLUS ACIDOPHILUS/BULGARICUS CAPLET PO SCH (09:05)
[2016-10-05] MEDS: FENOFIBRATE 160 MG TABLET PO SCH (09:05)
[2016-10-05] MEDS: INSULIN REGULAR 100 UNIT/ML SUBCUT SCH ×2 (09:05→12:00)
[2016-10-05] MEDS: ASPIRIN EC 81 MG TABLET PO SCH (09:05)
[2016-10-05] MEDS: METOPROLOL TARTRATE 25 MG TABLET PO SCH (09:05)
[2016-10-05] MEDS: OMEGA 3 ACID ETHYL ESTERS 1 GM CAPSULE PO SCH (09:05)
[2016-10-05] MEDS: DOCUSATE SODIUM 100 MG CAPSULE PO SCH (09:06)
[2016-10-05] MEDS: metFORMIN 500 MG TABLET PO SCH (09:06)
[2016-10-05] MEDS: PANTOPRAZOLE 40 MG TABLET PO SCH (09:06)
[2016-10-05] MEDS: GLIMEPIRIDE 4 MG TABLET PO SCH (09:06)
[2016-10-05] MEDS: CIPROFLOXACIN INJ 200 MG in PREMIX 1 EACH IV SCH (11:14)
--- NOTE | 2016-10-05 15:55 | Neurology Progress Note ---
Neurology - PN : Subjective Interval history: Patient seems to be doing well. No new problems reported. Being discharged home today Exam (Progress Note) - Constitutional Vitals: Period Temp Pulse Resp BP Sys/Worthy Pulse Ox Last 24 Hr 96.2 F-98 F 18-77 18-20 144-174/65-74 93-99 Exam: GENERAL: Patient is in no acute distress. NECK: Neck is supple. There is no JVD. No carotid bruits present. No thyroid masses. CVS: First and second heart sounds are normal. There is no S3 present. Regular rate and rhythm. RESPIRATORY: Lungs are clear to auscultation without any rales or rhonchi. ABDOMEN: Soft and non-tender. Bowel sounds are present. There is no hepatosplenomegaly. EXT: There is no palpable edema. Peripheral pulses are present. Skin: No rashes Central Nervous system: General: Alert, awake and Oriented x 3 Speech: Fluent Comprehension: Intact and normal Facial expressions: Normal Cranial Nerves: CN1/Olfactory: Normal CN II/ Optic: Normal, Visual Quintana unreliable CN III, and : FAYE & EOMI CN V: Normal & intact CN VII: face is symmetric CNVIII: Normal CN XI/X/XI/XII: Intact and Normal Motor: Bulk and Tone is normal. Strength in the right 5/5 Strength in the left 5/5 Sensory: Decreased for all the modalities of PP, LT and temp sense in the glove and stocking distribution Reflexes: 1+ and symmetrical Cerebellar function: Normal finger to nose and heel to patiño testing. Toes: Equivocal Gait: Slightly broad-based Results - Labs CBC & BMP: 10/03/16 03:45 10/04/16 02:51 Assessment and Plan (1) Transient cerebral ischemia Status: Acute Assessment and plan: Continue aspirin 81 mg p.o. daily Okay to go home from neuro standpoint Sign off please call as needed Current Visit: Yes Quality Measures - Stroke Onset of Symptoms Date: 10/02/16 Onset of Symptoms Time: 08:30 Symptom Onset Unknown: No Specialty Discharge - Follow Up or Referrals Follow up with: Stephen Pelayo MD [Physician] - 11/07/16 9:45 am Yarelis Infante MD [Physician] - 10/19/16 7:15 pm (SLEEP STUDY AT [facility] -CK IN AT ADMISSIONS AT 715PM) Alma Mabry DO [Physician] -
[2016-10-05 17:09] VITALS: BP 146/62
== END 2016-10-05 17:07 | disposition home or self-care (01) | DRG 66 ==
LOC: N.EDINP 16:16 → N.ED 16:16 → N.4E 19:20
PROVIDERS: ADMIT Internal Medicine; ATTEND Internal Medicine